=== PATIENT | male | born 1970 | race Caucasian/White ===

== ENCOUNTER 2019-12-01 06:19 | Day surgery (SDC) | payer SELFPAY ==
[~2019-12-01] VITALS: Ht 182.9 cm; Wt 77.6 kg
[2019-12-01 07:36] VITALS: BP 127/83; Ht 182.9 cm; Wt 77.6 kg
--- NOTE | 2019-12-01 10:04 | NUR ---
PATIETN SLEEPING. HARD TO AROUSE.
--- NOTE | 2019-12-01 13:27 | NUR ---
BLADDER SCANNED SHOWED 63ML OF URINE. IV REMOVED WITH TIP INTACT. PT DRESSING AT THIS TIME.
== END 2019-12-01 13:35 | disposition home or self-care (01) ==
LOC: D.OPS 06:19
PROVIDERS: ATTEND Surgery
DX: K64.1 Second degree hemorrhoids (principal); K64.9 Unspecified hemorrhoids